=== PATIENT | female | born 1990 | race Hispanic/Latino ===

== ENCOUNTER 2022-04-10 01:01 | Emergency (ER) | payer OTHER ==
--- OUTSIDE RECORDS SUMMARY | 2022-04-10 01:05 | XMS REPORT | Continuity of Care Document ---
:1990 Author Organization [facility] t Address [address] [place] [address] Care Team Providers Name Role Phone ODALYS GUEVARA Attending Clinician Unavailable Odalys Guevara Attending Clinician ODALYS GUEVARA Admitting Clinician Unavailable Odalys Guevara Admitting Clinician Problems Condition Condition Condition Status Onset Resolution Last Treating Co mments Source Name Details Category Date Date Treatment Clinician Date , Diagnosis Active 2020-08-14 Memoria 04/13 , 06/23 , 06-12 08:15:00 l , 39 WEEKS 04/13 , 06/23 00:00: He ann , 39 WEEKS 00 Active 06/12/2020 [facility] 04/13 , 06/23 04/13 , Diagnosis Active 2020-06-16 Memoria , 39 WEEKS 06/23 , 39 06-12 13:54:00 l WEEKS 00:00: Cornelius Active 06/12/2020 [facility] CHILDBIRTH CHILDBIRT Diagnosis Active 2017-032018-04-16 Memoria H Active 04-25 15:12:00 l 02/22/2018 00:00: Edilberto huizar 00 [place] INDUCTION Diagnosis Active 2017-032018-04-18 Memoria INDUCTION - 10:47:00 l Active 00:00: [place] 02/22/2018 [facility] Anxiety Anxiety Problem Active 2020-06-20 Me anabel (finding) (finding) 03-13 21:55:06 l Active 00:00: [place] 03/13/2000 00 Problem 06/20/2020 [facility] 39 weeks 39 weeks Problem 2018-11-07 Memoria gestation gestation 15:58:01 l of of [place] 11/07/2018 [facility] Single Single Problem 2018-11-07 Mem oria live live 15:58:01 l 11/07/2018 Edilberto huizar [facility] Encounter Encounter Problem 2020-06-20 Memoria for for 21:55:06 l full-term full-term Herm pebbles uncomplica uncomplica josette josette delivery delivery 06/20/2020 [facility] ENCOUNTER ENCOUNTER Diagnosis Active 2020-08-14 Memoria FOR FOR 08:15:00 l Edilberto n DELIVERY DELIVERY WITHOUT WITHOUT Active [facility] ENCOUNTER Diagnosis Active 2020-06-17 Memoria FOR ENCOUNTER 10:58:00 l FULL-TERM FOR Cornelius UNCOMPLICA FULL-TERM JOSETTE DE UNCOMPLICA JOSETTE DE Active [facility] FAILED FAILED Diagnosis Active 2018-04-18 Me moria INDUCTION INDUCTION 10:47:00 l OF LABOR, OF LABOR, Herm pebbles UNSPECIFIE UNSPECIFIE D D Active [facility] Failed Failed Problem 2018-11-07 Roberto [facility] medical 15:58:01 l induction induction Herm pebbles of labor of labor 11/07/2018 [facility] Anxiety Anxiety Problem 2018-11-07 Me moria disorder, disorder, 15:58:01 l unspecifie unspecifie He rmann d d 11/07/2018 [facility] Other Other Problem 2018-11-07 Memor ia mental mental 15:58:01 l disorders disorders Herm pebbles complicati complicati ng ng childbirth childbirth 11/07/2018 [facility] Localized Localized Problem 2018-11-07 Memoria adiposity adiposity 15:58:01 l 11/07/2018 Edilberto huizar [facility] Patient Patient Problem Resolve 2020-06-20 2020-06-20 Memoria currently currently d 2- 21:55:06 21:55:06 l 00:00: Edilberto huizar (finding) (finding) 00 Resolved 04/16/2018 Problem 06/20/2020 [facility] History of Past Illness Condition Condition Condition Status Onset Resolution Last Treating Co mments Source Name Details Category Date Date Treatment Clinician Date Maternal Maternal Problem 2018-2018-11-07 2018-11-07 [facility]iele [facility] for care for 15:58:01 15:58:01 l disproport disproport 04:21: He rmann ion due to ion due to 18 unusually unusually large large fetus, not fetus, not applicable applicable or or unspecifie unspecifie d d 05/05/2018 9 [facility] Allergies, Adverse Reactions, Alerts This patient has no known allergies or adverse reactions. Social History Social Habit Start Date Stop Date Quantity Comments Source Social History 2018-04-17 2018-04-17 [facility] 00:23:02 00:23:02 Medications Ordered Filled Start Stop Current Ordering Indication Dosage Frequency Signature Comments Components Source Medication Medication Date Date Medication? Clinician (SIG) Name Name Cephalexin Yes 500 mg = 1 M emoria 500 MG Oral 08 cap, PO, l Capsule 17:20: BID, X 7 Edilberto n [Keflex] 00 day, # 14 cap, 0 Refill(s) Ibuprofen No Notes: Memori a - (Same as: l 17:00: Motrin) Cornelius "Do Not Crush" Take with food. Acetaminoph No Notes: Do M emoria en -07 not exceed l 16:43: 4 gm/day. [place] 00 (Same as: Tylenol) Acetaminoph No Notes: Roberto ellie en 325 MG / 06-17 (Same as: l Hydrocodone 16:43: [place] Charline nn Bitartrate 00 325/5) Do 5 MG Oral not exceed Tablet 4gm/day of acetaminop hen. Acetaminoph No Notes: Do M emoria en 325 MG / 07 not exceed l Hydrocodone 16:43: 4gm/day of [place]el[place] Bitartrate 00 acetaminop 10 MG Oral hen. (Same Tablet as: [place] 325/10) Ondansetron No Notes: Roberto ellie -07 (Same as: l 16:43: Zofran) [place] 00 MEDICATION WASTE Product Size: 4 mg Product Wasted: ___ mg No 1 tab, Memoria Multivitami 07 Route: PO, l ns oral 14:00: Drug Form: Herm pebbles tablet 00 TAB, Dosing Weight 127.273, kg, Daily, Start date: 06/17/20 9:00:00 CDT, Duration: 30 day, Stop date: 07/16/20 9:00:00 CDT, 0 Saline No Notes: Memoria Flush 0.9% - (Same as: l 02:00: BD Posiflush) Ketorolac No 4 days Memor ia 4-06 l 17:00: MEDICATION WASTE Product Size: 30 mg Product Wasted: ___ mg M-M-R II No Notes: Memoria 4-06 (Same as: l 16:00: M-M-R II) (measles-m umps-rubel la virus vaccine 0.5 ml INJ VL) WASTE: F/P - Red; E -Red GIVE PRIOR TO DISCHARGE Calcium No 1,000 mL, Memor ia Chloride -06 1,000 l 0.0014 16:00: ml/hr, MEQ/ML / 00 Infuse Potassium Over: 1 Chloride hr, Route: 0.004 IV, 1,000, MEQ/ML / Drug form: Sodium INJ, Chloride ONCALL, 0.103 Dosing MEQ/ML / Weight Sodium 127.273 Lactate kg, Start 0.028 date: MEQ/ML 06/16/20 Injectable 11:00:00 Solution CDT, Duration: 1 doses or times, For OB hemorrhage per physician direction, 0 Oxytocin No Notes: Memoria 4-06 (Same as: l 16:00: Pitocin) Hazardous Drug Group 3:Reproduc tive risk Hazardous Drug -- Refer to safe handling procedure PPE Matrix Misoprostol No Notes: Roberto ellie 4-06 (Same l 16:00: as:Cytotec ) Hazardous Drug Group 3:Reproduc tive risk Hazardous Drug -- Refer to safe handling procedure PPE Matrix Take with food Methylergon No Notes: Roberto ellie ovine 4-06 (Same l 16:00: as:Metherg ine) Hazardous Drug Group 3:Reproduc tive risk Hazardous Drug -- Refer to safe handling procedure PPE Matrix Atropine No Notes: Memoria Sulfate 4-06 (Same As: l 0.025 MG / 16:00: Lomotil) Her álvarez Diphenoxyla 00 MAX Adult te dose = 8 Hydrochlori tabs/day de 2.5 MG Oral Tablet Carboprost No Notes: Memor ia 4-06 (Same As: l 16:00: Hemabate) Tranexamic No Notes: Memor ia Acid -06 (Same As: l 16:00: Cyklokapro n) Lactated No 1,000 mL, Roberto ellie Ringers IV 06-16 Rate: 125 l 1,000 mL 15:55: ml/hr, Infuse over: 8 hr, Route: IV, Dosing Weight 127.273 kg, Total Volume: 1,000, see special instructio n for rate while completing infusion from recovery for the 20 Units of Oxytocin., Start date: 06/16/20 10:55:00 CDT, Duration.. . Bisacodyl No Notes: Memori a - (Same As: l 15:55: Dulcolax, Correctol) (Do Not Crush) "Do Not Crush" Docusate No Notes: Memoria 06-16 (Same as: l 15:55: Colace) (Do Not Crush) lanolin No 1 appl, Memoria topical 06-16 Route: l cream 15:55: TOP, PRN, Drug form: OINT, PRN Other -See Comment, Start date: 06/16/20 10:55:00 CDT, Duration: 30 day, Stop date: 07/16/20 10:54:00 CDT, 0 Simethicone No Notes: Roberto ellie -06 (Same as: l 15:55: Mylicon) Oxytocin No Notes: Memoria 06 Hazardous l 15:55: Drug Group 3:Reproduc tive risk Hazardous Drug -- Refer to safe handling procedure PPE Matrix Saline No Notes: Memoria Flush 0.9% 06-16 (Same as: l 15:55: BD Posiflush) Naloxone No Notes: Memoria 4-06 Same as l 15:00: Narcan Oxycodone No Notes: Memori a Hydrochlori -06 (Same as: l de 5 MG 14:55: Roxicodone Herm pebbles Oral Tablet ) Hydromorpho No Notes: Roberto ellie ne -06 Same as: l 14:55: Dilaudid Ondansetron No Notes: Roberto ellie -06 (Same as: l 14:55: Zofran) MEDICATION WASTE Product Size: 4 mg Product Wasted: ___ mg Nalbuphine No Notes: Memor ia -06 (Same As: l 14:55: Nubain) Meperidine Yes Notes: Memor ia -06 (Same as: l 14:55: Demerol) "Use Precaution in Elderly, Seizure disorders, and Renal impairment " Diphenhydra No Notes: Roberto ellie mine -06 (Same as: l 14:36: Benadryl) oxytocin No Route: IV, Mem oria (ANES) 30 06-16 Drug form: l unit 13:47: SOLN, [place] 00 Start date: 06/16/20 8:47:00 CDT, Stop date: 06/16/20 9:47:00 CDT bupivacaine No Route: Roberto ellie (ANES) 06-16 INTRATHECA l 13:46: L, Drug Form: INJ, ONCE, Stop date: 06/16/20 8:46:00 CDT phenylephri No Route: IV, Memoria ne (ANES) 06-16 Drug form: l 13:46: INJ, ONCE, Stop date: 06/16/20 8:46:00 CDT fentaNYL No Route: Memoria (ANES) 4- INTRATHECA l 13:46: L, Drug form: INJ, ONCE, Stop date: 06/16/20 8:46:00 CDT morphine No Route: Memoria Sulfate - INTRATHECA l (ANES) 13:46: L, Drug form: INJ, ONCE, Stop date: 06/16/20 8:46:00 CDT ondansetron No Route: IV, Memoria (ANES) 06-16 Drug form: l 13:36: INJ, ONCE, Stop date: 06/16/20 8:36:00 CDT ceFAZolin No Route: IV, Me moria (ANES) 1000 06-16 Drug form: l mg 13:01: INJ, Start date: 06/16/20 8:01:00 CDT, Stop date: 06/16/20 9:01:00 CDT Lactated No Route: IV, Mem oria Ringers 06-16 Total l Injection 13:01: Volume: Charline nn IV (ANES) 00 1,000, 1000 mL Start date: 06/16/20 8:01:00 CDT, Stop date: 06/16/20 9:01:00 CDT Vitamin D3 Yes 0 Memoria 06-16 Refill(s) l 11:14: Calcium No 1,000 mL, Memor ia Chloride 06-16 1,000 l 0.0014 11:00: ml/hr, MEQ/ML / 00 Infuse Potassium Over: 1 Chloride hr, Route: 0.004 IV, 1,000, MEQ/ML / Drug form: Sodium INJ, Chloride ONCALL, 0.103 Dosing MEQ/ML / Weight Sodium 127.273 Lactate kg, Start 0.028 date: MEQ/ML 06/16/20 Injectable 6:00:00 Solution CDT, Duration: 1 doses or times, For OB hemorrhage per physician direction, 0 Oxytocin No Notes: Memoria 06-16 (Same as: l 11:00: Pitocin) Hazardous Drug Group 3:Reproduc tive risk Hazardous Drug -- Refer to safe handling procedure PPE Matrix Misoprostol No Notes: Roberto ellie 06-16 (Same l 11:00: as:Cytotec ) Hazardous Drug Group 3:Reproduc tive risk Hazardous Drug -- Refer to safe handling procedure PPE Matrix Take with food Methylergon No Notes: Roberto ellie ovine 06-16 (Same l 11:00: as:Metherg 00 ine) Hazardous Drug Group 3:Reproduc tive risk Hazardous Drug -- Refer to safe handling procedure PPE Matrix Atropine No Notes: Memoria Sulfate - (Same As: l 0.025 MG / 11:00: Lomotil) Her álvarez Diphenoxyla 00 MAX Adult te dose = 8 Hydrochlori tabs/day de 2.5 MG Oral Tablet Carboprost No Notes: Memor ia - (Same As: l 11:00: Hemabate) Tranexamic No Notes: Memor ia Acid 06-16 (Same As: l 11:00: Cyklokapro n) Cefazolin No Notes: Memori a 06-16 (Same As: l 11:00: Ancef, Kefzol) MEDICATION WASTE Product Size: 1000 mg Product Wasted: ___ mg Calcium No 1,000 mL, Memor ia Chloride 06-16 1,000 l 0.0014 10:51: ml/hr, [place] MEQ/ML / 00 Infuse Potassium Over: 1 Chloride hr, Route: 0.004 IV, 1,000, MEQ/ML / Drug form: Sodium INJ, ONCE, Chloride Dosing 0.103 Weight MEQ/ML / 127.273 Sodium kg, Start Lactate date: 0.028 06/16/20 MEQ/ML 5:51:00 Injectable CDT, Stop Solution date: 06/16/20 5:51:00 CDT, 0 oxytocin 30 No Notes: Roberto ellie units in NS 06-16 Hazardous l 500 mL 10:51: Drug Group Charline nn (Bolus) IV 00 3:Reproduc 10.02 unit tive risk Hazardous Drug -- Refer to safe handling procedure PPE Matrix oxytocin 30 No Notes: Roberto ellie units in NS 4-06 Hazardous l 500 mL IV 10:51: Drug Group He rmann 19.98 unit 00 3:Reproduc tive risk Hazardous Drug -- Refer to safe handling procedure PPE Matrix Morphine No Notes: Memoria -06 (Same l 10:51: as:MORPhin e Sulfate) Citric Acid No Notes: Roberto ellie / sodium 4-06 (Same As: l citrate 10:51: Bicitra) Edilberto n 00 Terbutaline No Notes: Roberto ellie 4-06 DO NOT l 10:51: USE IN [place] 00 COOK APPRENTICE PASTRY AREA (Same As: [place]) Famotidine No Notes: Memor ia -06 (Same as: l 10:51: Pepcid) Can be dilute in 5-10cc NS IVP: Slow IV push over at least 2 minutes. Ondansetron No Notes: Roberto ellie 4-06 (Same as: l 10:51: Zofran) MEDICATION WASTE Product Size: 4 mg Product Wasted: ___ mg Metoclopram No Notes: Roberto ellie ryan -06 (Same as: l 10:51: Reglan) [place] 00 Oxytocin No Notes: Memoria 4-06 Hazardous l 10:51: Drug Group 3:Reproduc tive risk Hazardous Drug -- Refer to safe handling procedure PPE Matrix Lorazepam 1 No 1 mg = 1 Me moria MG Oral 2-08 tab, PO, l Tablet 22:53: BID, PRN 00 Anxiety, # 30 tab, 1 Refill(s) ibuprofen No 600 mg = 1 Me moria 600 mg oral 2-08 tab, PO, l tablet 22:50: Q6Hnow, # Edilberto n 00 30 btl, 1 Refill(s) cephalexin No 500 mg = 1 M emoria 500 mg oral 2-08 cap, PO, l capsule 22:50: [id number], # Herm pebbles 00 14 cap, 0 Refill(s) Acetaminoph No 1 tab, PO, Memoria en 300 MG / 2-08 Q6H, PRN l Codeine 22:50: Pain Score Herm pebbles Phosphate 00 4-6, # 30 30 MG Oral tab, 2 Tablet Refill(s) [Tylenol with Codeine #3] Keflex No Notes: Memoria 2-08 Take on l 21:00: empty [place] 00 stomach. (Same As: Keflex) Acetaminoph No Notes: Do M emoria en 300 MG / 2-08 not exceed l Codeine 20:26: 4gm/day of Herm pebbles Phosphate 00 acetaminop 30 MG Oral hen. (Same Tablet as: [Tylenol Tylenol with with Codeine #3] Codeine # 3) Ativan No Notes: Memoria 2-08 (Same as: l 17:00: Ativan) [place] 00 Lovenox No Notes: Memoria 2-06 (Same as: l 20:00: Lovenox) Cornelius No 1 tab, Memoria Multivitami -06 Route: PO, l ns oral 15:00: Drug Form: Herm pebbles tablet 00 TAB, Dosing Weight 128.182, kg, Daily, Start date: 04/18/18 9:00:00 IRON PILER, Duration: 30 day, Stop date: 05/17/18 9:00:00 IRON PILER Ketorolac No 4 days Memor ia 04-18 l 01:10: MEDICATION WASTE Product Size: 30 mg Product Wasted: ___ mg ferrous No Notes: Memoria sulfate 2-05 Give with l 23:00: food. "Do Not Crush" Ibuprofen No Notes: Memori a 2-05 (Same as: l 22:00: Motrin) "Do Not Crush" Take with food. zolpidem No Notes: Memoria 2-05 (Same As: l 21:08: Ambien) Bisacodyl No Notes: Memori a 2-05 (Same As: l 21:08: Dulcolax, [place] 00 Bisco-Lax) Docusate No Notes: Memoria 2-05 (Same as: l 21:08: Colace) (Do Not Crush) Acetaminoph No Notes: Roberto ellie en 325 MG / 2-05 (Same as: l Hydrocodone 21:08: [place] Charline nn Bitartrate 00 325/5) Do 5 MG Oral not exceed Tablet 4gm/day of acetaminop hen. Acetaminoph No Notes: Do M emoria en 325 MG / 2-05 not exceed l Hydrocodone 21:08: 4gm/day of [place] Bitartrate 00 acetaminop 10 MG Oral hen. (Same Tablet as: [place] 325/10) Lactated No 1,000 mL, Roberto ellie Ringers IV 2-05 Rate: 100 l 1,000 mL 21:08: ml/hr, [place] 00 Infuse over: 10 hr, Route: IV, Dosing Weight 128.182 kg, Total Volume: 1,000, Start date: 04/17/18 15:08:00 IRON PILER, Duration: 30 day, Stop date: 05/17/18 15:07:00 IRON PILER, 2.49, m2 Oxytocin 2019 No 30 unit, Memor ia 2-05 500 mL, l 21:08: Rate: 42 Cornelius 00 ml/hr, Infuse over: 11.9 hr, Dosing Weight 128.182, kg, Route: IV, Total Volume: 500 mL, Start date: 04/17/18 15:08:00 IRON PILER, Duration: 2 day, Stop date: 04/19/18 15:07:00 IRON PILER, Replace Every: 11.9 hr Simethicone No Notes: Roberto ellie 2-05 (Same as: l 21:08: Mylicon) Acetaminoph No Notes: Do M emoria en 2-05 not exceed l 21:08: 4 gm/day. (Same as: Tylenol) Benzocaine No Notes: Memor ia / Menthol 2-05 Same as: l 21:08: Cepacol lanolin No 1 appl, Memoria topical 05 Route: l cream 21:08: TOP, PRN, Drug form: OINT, PRN Other -See Comment, Start date: 04/17/18 15:08:00 IRON PILER, Duration: 30 day, Stop date: 05/17/18 15:07:00 IRON PILER Naloxone 2018-0 No Notes: Memoria 2-05 Same as l 19:47: Narcan phenylephri No Route: IV, Memoria ne (ANES) 2-05 Drug form: l 19:23: INJ, ONCE, Stop date: 04/17/18 13:23:00 IRON PILER morphine 2018-0 No Route: Memoria Sulfate 2-05 INTRATHECA l (ANES) 19:17: L, Drug form: INJ, ONCE, Stop date: 04/17/18 13:17:00 IRON PILER bupivacaine No Route: Roberto ellie (ANES) 2-05 INTRATHECA l 19:12: L, Drug Form: INJ, ONCE, Stop date: 04/17/18 13:12:00 IRON PILER oxytocin 2019-0 No Route: IV, Mem oria (ANES) 30 2-05 Drug form: l unit 19:11: SOLN, Cornelius Start date: 04/17/18 13:11:00 IRON PILER, Stop date: 04/17/18 14:11:00 IRON PILER ceFAZolin No Route: IV, Me moria (ANES) 1000 2-05 Drug form: l mg 18:30: INJ, Start date: 04/17/18 12:30:00 IRON PILER, Stop date: 04/17/18 13:30:00 IRON PILER Lactated No Route: IV, Mem oria Ringers 2-05 Total l Injection 18:22: Volume: Charline nn IV (ANES) 00 1,000, 1000 mL Start date: 04/17/18 12:22:00 IRON PILER, Stop date: 04/17/18 13:22:00 IRON PILER Cefazolin No Notes: Memori a 2-05 (Same As: l 17:00: Ancef, Kefzol) MEDICATION WASTE Product Size: 1000 mg Product Wasted: ___ mg Metoclopram 2018- No Notes: Roberto ellie ryan 2-05 (Same as: l 16:17: Reglan) Ondansetron 2018- No Notes: Roberto ellie 2-05 (Same as: l 15:16: Zofran) MEDICATION WASTE Product Size: 4 mg Product Wasted: ___ mg Morphine 2019- No 2 mg, 1 Memori a 2-05 mL, Route: l 15:16: IVP, Drug form: SOLN, Q2H, Dosing Weight 128.182, kg, PRN Pain Score 7-10, Start date: 04/17/18 9:16:00 IRON PILER, Duration: 30 day, Stop date: 05/17/18 9:15:00 IRON PILER Cefazolin No Notes: Memori a 2-05 (Same As: l 15:16: Ancef, [place] Kefzol) MEDICATION WASTE Product Size: 1000 mg Product Wasted: ___ mg Expecta DHA 2018- Yes 0 Memori a 2-05 Refill(s) l 14:03: [place] 00 1 No 1 tab, PO, M emoria Plus 1 oral 2-05 Daily, # l tablet 14:03: 30 tab, 0 Edilberto n 00 Refill(s) Oxytocin No 30 unit, Memor ia 2-05 500 mL, l 11:42: Rate: Titrate, Dosing Weight 282, lb, Route: IV, Total Volume: 500 mL, Start date: 04/17/18 5:42:00 IRON PILER, Duration: 2 day, Stop date: 04/19/18 5:41:00 IRON PILER, Replace Every: 24 hr Misoprostol No Notes: Roberto ellie 2-05 (Same l 02:00: as:Cytotec [place] 00 ) Take with food 25 microgram = 1/4 tab of 100 microgram. Carboprost No Notes: Memor ia 2-05 (Same As: l 00:00: Hemabate) Citric Acid No Notes: Roberto ellie / sodium 2-05 (Same As: l citrate 00:00: Bicitra) Edilberto n Methylergon No Notes: Roberto ellie ovine 2-05 (Same l 00:00: as:Metherg [place] ine) Misoprostol No Notes: Roberto ellie 2-05 (Same l 00:00: as:Cytotec [place] 00 ) Take with food Famotidine No Notes: Memor ia 2-05 (Same as: l 00:00: Pepcid) Can be dilute in 5-10cc NS IVP: Slow IV push over at least 2 minutes. Terbutaline No Notes: Roberto ellie 2-04 DO NOT l 23:42: USE IN [place] COOK APPRENTICE PASTRY AREA (Same As: Brethine) Butorphanol No Notes: Roberto ellie 2-04 (Same As: l 23:42: Stadol) Meperidine No Notes: Memor ia 2-04 (Same as: l 23:42: Demerol) "Use Precaution in Elderly, Seizure disorders, and Renal impairment " Promethazin No Notes: Do M emoria e 2-04 not give l 23:42: IV push. [place] 00 (Same as: Phenergan) Acetaminoph No Notes: Roberto ellie en 325 MG / 2-04 (Same as: l Hydrocodone 23:42: [place] Charline nn Bitartrate 00 325/5) Do 5 MG Oral not exceed Tablet 4gm/day of acetaminop hen. Ondansetron No Notes: Roberto ellie 2-04 (Same as: l 23:42: Zofran) MEDICATION WASTE Product Size: 4 mg Product Wasted: ___ mg Lidocaine No Notes: Memori a Hydrochlori 2-04 Preservati l de 10 MG/ML 23:42: ve free. He rmann Injectable 00 (Same as: Solution Xylocaine MPF) Oxytocin No 30 unit, Memor ia 2-04 500 mL, l 23:42: Rate: 42 [place] 00 ml/hr, Infuse over: 11.9 hr, Route: IV, Total Volume: 500 mL, Start date: 04/16/18 17:42:00 IRON PILER, Duration: 2 day, Stop date: 04/18/18 17:41:00 IRON PILER, Replace Every: 11.9 hr Calcium No 1,000 mL, Memor ia Chloride 2-04 1,000 l 0.0014 23:42: ml/hr, [place] MEQ/ML / 00 Infuse Potassium Over: 1 Chloride hr, Route: 0.004 IV, 1,000, MEQ/ML / Drug form: Sodium INJ, ONCE, Chloride kg, Start 0.103 date: MEQ/ML / 04/16/18 Sodium 17:42:00 Lactate IRON PILER, Stop 0.028 date: MEQ/ML 04/16/18 Injectable 17:42:00 Solution IRON PILER, Bolus for regional anesthesia per unit routine Lactated No 1,000 mL, Roberto ellie Ringers IV 04-16 Rate: 125 l 1,000 mL 23:42: ml/hr, [place] 00 Infuse over: 8 hr, Route: IV, Total Volume: 1,000, Start date: 04/16/18 17:42:00 IRON PILER, Duration: 30 day, Stop date: 05/16/18 17:41:00 IRON PILER Ibuprofen No Notes: Memori a 2-04 (Same as: l 23:42: Motrin) [place] "Do Not Crush" Take with food. Ativan No Notes: Memoria 2-04 (Same as: l 23:40: Ativan) Cornel[place] Immunizations Ordered Immunization Filled Immunization Date Status Commen ts Source Name Name diphtheria/pertussis 2020-06-17 Completed Roberto rial , acel/tetanus adult 22:47:00 Herm pebbles diphtheria/pertussis 2018-04-19 Completed Roberto rial , acel/tetanus adult 12:29:00 Herm pebbles Vital Signs Vital Name Observation Time Observation Value Comments Source Temperature Oral (F) 2020-06-18 12:30:00 98.2 F [facility] [place] Heart Rate 2020-06-18 12:30:00 [facility] [place] Respitory Rate 2020-06-18 12:30:00 Memori al [place] Systolic (mm Hg) 2020-06-18 12:30:00 Roberto rial [place] Diastolic (mm Hg) 2020-06-18 12:30:00 Mem orial [place] Temperature Oral (F) 2020-06-18 05:00:00 98.0 F [facility] [place] Heart Rate 2020-06-18 05:00:00 [facility] [place] Respitory Rate 2020-06-18 05:00:00 Memori al [place] Systolic (mm Hg) 2020-06-18 05:00:00 Roberto rial [place] Diastolic (mm Hg) 2020-06-18 05:00:00 Mem orial [place] Temperature Oral (F) 2020-06-17 21:21:00 98.1 F [facility] [place] Heart Rate 2020-06-17 21:21:00 [facility] [place] Respitory Rate 2020-06-17 21:21:00 Memori al [place] Systolic (mm Hg) 2020-06-17 21:21:00 Roberto rial [place] Diastolic (mm Hg) 2020-06-17 21:21:00 Mem [facility] [place] Height 2020-06-16 10:47:00 167.64 cm [facility] [place] Weight 2020-06-16 10:47:00 [facility] [place] BMI Calculated 2020-06-16 10:47:00 [facility] [place] Height 2020-06-13 18:37:00 167.64 cm [facility] [place] Weight 2020-06-13 18:37:00 [facility] [place] BMI Calculated 2020-06-13 18:37:00 [facility] [place] Temperature Oral (F) 2020-06-13 18:37:00 98.4 F [facility] [place] Heart Rate 2020-06-13 18:37:00 [facility] [place] Respitory Rate 2020-06-13 18:37:00 Mem[facility] al [place] Systolic (mm Hg) 2020-06-13 18:37:00 Roberto rial [place] Diastolic (mm Hg) 2020-06-13 18:37:00 Mem orial [place] Respitory Rate 2018-04-20 21:46:00 Memori al [place] Systolic (mm Hg) 2018-04-20 21:46:00 Roberto rial [place] Diastolic (mm Hg) 2018-04-20 21:46:00 Mem orial [place] Heart Rate 2018-04-20 21:46:00 [facility] [place] Temperature Oral (F) 2018-04-20 21:46:00 98.8 F [facility] [place] Temperature Oral (F) 2018-04-20 13:39:00 98.6 F [facility] [place] Systolic (mm Hg) 2018-04-20 13:39:00 Roberto rial [place] Diastolic (mm Hg) 2018-04-20 13:39:00 Mem orial [place] Heart Rate 2018-04-20 13:39:00 [facility] [place] Respitory Rate 2018-04-20 13:39:00 Memori al [place] Diastolic (mm Hg) 2018-04-20 06:00:00 Mem orial [place] Systolic (mm Hg) 2018-04-20 06:00:00 Roberto rial [place] Respitory Rate 2018-04-20 06:00:00 Memori al [place] Heart Rate 2018-04-20 06:00:00 [facility] Cornelius Temperature Oral (F) 2018-04-20 06:00:00 98.5 F [facility] Cornelius BMI Calculated 2018-04-16 23:42:00 Matty Rodríguez Weight 2018-04-16 23:42:00 Emily Shields Height 2018-04-16 23:42:00 167.64 cm Emily [place] Procedures Procedure Date / Time Performed Performing Clinician Sourc e section 2018-04-17 06:00:00 [facility] Kimani rmpebbles Extraction of wisdom [facility] Kimani rmpebbles tooth Encounters Start End Encounter Admission Attending Care Care Encounter Source Date/Time Date/Time Type Type Clinicians Facility Department ID 2020-06-16 2020-06-18 Inpatient Nikkio [facility] [id number] Memoria 10:38:00 19:00:00 smita Shields 00 l [facility] 2020-06-16 2020-06-18 [place] [facility] [id number] 05:38:00 14:00:00 ODALYS rucker [facility] l 2020-06-16 2020-06-18 [place] [id number] 05:38:00 14:00:00 Odalys R 00 2020-06-16 2020-06-16 [place] [facility] [id number] 07:30:00 07:30:00 Odalys R 00 2018-04-16 2018-04-20 Inpatient Nikkio [facility] [id number] Memoria 23:15:00 23:15:00 smita Shields 47 l [facility] 2018-04-16 2018-04-20 [place] [id number] 17:15:00 17:15:00 Odalys R 47 2018-04-16 2018-04-20 [facility], [place] [id number] 17:15:00 17:15:00 Odalys R 47 Results Test Description Test Time Test Comments Results Result Comments Source HEMATOLOGY 2020-06-17 03:55:00 Test Item Value Reference Range Interpretation Comme nts Hgb (test code = Hgb) 10.6 12.0-16.0 [facility] 03:55:00 Test Item Value Reference Range Interpretation Comments Hct (test code = Hct) 32.9 36.0-48.0 [facility] [id number] 18:25:00 Test Item Value Reference Range Interpretation Comments ABO/Rh (test code = ABO/Rh) A POS [facility] [id number] 18:25:00 Test Item Value Reference Range Interpretation Comments Antibody Scrn (test Negative (06/13/20 1:25 code = Antibody Scrn) PM) [facility]2021-04-03 18:25:00 Test Item Value Reference Range Interpretation Comments Rhig Reqd (test code = See Note 1(06/13/20 1:25 Rhig Reqd) PM) [facility]WNUDIGERCF9949-03-12 18:25:00 Test Item Value Reference Range Interpretation Comments Segs (test code = Segs) 69.6 45.0-75.0 [facility] HospitalBvwzvvtYNYHVFCUEH5458-58-96 18:25:00 Test Item Value Reference Range Interpretation Comments Lymphocytes (test code = Lymphocytes) 22.3 20.0-40.0 [facility] HospitalRikzvbqOAGYHCSGBY4263-53-17 18:25:00 Test Item Value Reference Range Interpretation Comments Monocytes (test code = Monocytes) 6.9 2.0-12.0 [facility] HospitalHjnfautQFHUUEPCKL3090-12-86 18:25:00 Test Item Value Reference Range Interpretation Comments Eosinophils (test code = 0.7 See_Comment [A utomated message] The Eosinophils) system which ge nerated this result tra nsmitted reference range : <=4.0. The reference r jennifer was not used to int erpret this result as normal/abnormal . [facility] HospitalNopfmsrNGAUDVABYI8659-64-28 18:25:00 Test Item Value Reference Range Interpretation Comments Basophils (test code = 0.5 See_Comment [Aut omated message] The Basophils) system which ge nerated this result tra nsmitted reference range : <=1.0. The reference r jennifer was not used to int erpret this result as normal/abnormal . [facility] HospitalIyqbfnsYCCQXZVGNO5705-25-65 18:25:00 Test Item Value Reference Range Interpretation Comments Neutrophils # (test code = Neutrophils 7.4 1.5-8.1 #) [facility] HospitalHwqsxakLYPWNPZZTH7562-99-96 18:25:00 Test Item Value Reference Range Interpretation Comments Lymphocytes # (test code = Lymphocytes 2.4 1.0-5.5 #) [place] [address]-04-03 18:25:00 Test Item Value Reference Range Interpretation Comments Monocytes # (test code 0.7 See_Comment [Aut omated message] The = Monocytes #) system which generated this result tra nsmitted reference range : <=0.8. The reference r jennifer was not used to int erpret this result as normal/abnormal . [place] 507741-04-03 18:25:00 Test Item Value Reference Range Interpretation Comments Eosinophils # (test code 0.1 See_Comment [A utomated message] The = Eosinophils #) system whic h generated this result tra nsmitted reference range : <=0.5. The reference r jennifer was not used to int erpret this result as normal/abnormal . [place] [address]-04-03 18:25:00 Test Item Value Reference Range Interpretation Comments Basophils # (test code 0.1 See_Comment [Aut omated message] The = Basophils #) system which generated this result tra nsmitted reference range : <=0.2. The reference r jennifer was not used to int erpret this result as normal/abnormal . [place] [address]-04-03 18:25:00 Test Item Value Reference Range Interpretation Comments WBC (test code = WBC) 10.7 3.7-10.4 [place] [address]-04-03 18:25:00 Test Item Value Reference Range Interpretation Comments RBC (test code = RBC) 4.67 4.20-5.40 [place] [address]-04-03 18:25:00 Test Item Value Reference Range Interpretation Comments Hgb (test code = Hgb) 12.3 12.0-16.0 [place] [address]-04-03 18:25:00 Test Item Value Reference Range Interpretation Comments Hct (test code = Hct) 37.6 36.0-48.0 [place] [address]-04-03 18:25:00 Test Item Value Reference Range Interpretation Comments MCV (test code = MCV) 80.4 80.0-98.0 [place] [address]-04-03 18:25:00 Test Item Value Reference Range Interpretation Comments MCH (test code = MCH) 26.4 pg 27.0-31.0 [facility] HospitalAwjildcFTDYRWWCQW1220-97-51 18:25:00 Test Item Value Reference Range Interpretation Comments MCHC (test code = MCHC) 32.8 32.0-36.0 [facility] HospitalWdxccfpLYXQPFLXSV3992-73-07 18:25:00 Test Item Value Reference Range Interpretation Comments RDW (test code = RDW) 16.2 11.5-14.5 [facility] HospitalJkyfoqqJLVMIWUIZX6435-50-15 18:25:00 Test Item Value Reference Range Interpretation Comments Platelet (test code = Platelet) 301 133-450 [facility] HospitalNjzpokkAAXKBHATMG5598-35-83 18:25:00 Test Item Value Reference Range Interpretation Comments MPV (test code = MPV) 8.0 7.4-10.4 [facility]izjycvALLNQKQLYP9754-79-07 18:25:00 Test Item Value Reference Range Interpretation Comments HIV. (test code = Negative (06/13/20 1:25 HIV.) PM) [facility] HospitalPhkmaluVHGLXBTWGY1291-43-69 18:25:00 Test Item Value Reference Range Interpretation Comments Rubella IgG (test code = Rubella IgG) 64.6 [facility] HospitalNqdxtqoCDZYZPJAQF6241-40-67 18:25:00 Test Item Value Reference Range Interpretation Comments Treponemal Ab (test code Non-Reactive = Treponemal Ab) *NA*(06/13/20 1:25 PM) [facility] HospitalTabkxajJWODRZAJNT2300-07-81 18:25:00 Test Item Value Reference Range Interpretation Comments Coronavirus (COVID-19) Not Detected BOO (test code = *NA*(06/13/20 1:25 PM) Coronavirus (COVID-19) BOO) [facility] HospitalVtdkhgkPTPJVXIJAP6325-79-06 18:25:00 Test Item Value Reference Range Interpretation Comments Hep Bs Ag (test code = Hep Bs NON-REACTIVE Ag) [facility] HospitalWkvkigcSJPIGBOWVK6202-89-87 13:55:00 Test Item Value Reference Range Interpretation Comments Hgb (test code = Hgb) 9.9 12.0-16.0 [facility] HospitalXwnwgloDLQPYXODUY9040-58-65 13:55:00 Test Item Value Reference Range Interpretation Comments Hct (test code = Hct) 29.5 36.0-48.0 [facility] HospitalBzjwmmvVPZKGQQWUR8259-80-51 00:06:00 Test Item Value Reference Range Interpretation Comments Basophils (test code = 0.5 See_Comment [Aut omated message] The Basophils) system which ge nerated this result tra nsmitted reference range : <=1.0. The reference r jennifer was not used to int erpret this result as normal/abnormal . [facility] HospitalKkljtkjVCYGNNWJBH0291-20-57 00:06:00 Test Item Value Reference Range Interpretation Comments Segs (test code = Segs) 73.6 45.0-75.0 [facility] HospitalOntohuoVINACRSOBZ9059-21-59 00:06:00 Test Item Value Reference Range Interpretation Comments Monocytes (test code = Monocytes) 6.6 2.0-12.0 [facility] HospitalAfaebilXNXYZPHUZH6881-60-58 00:06:00 Test Item Value Reference Range Interpretation Comments Eosinophils (test code = 0.8 See_Comment [A utomated message] The Eosinophils) system which ge nerated this result tra nsmitted reference range : <=4.0. The reference r jennifer was not used to int erpret this result as normal/abnormal . [facility] HospitalQhzztbwHANDJSLZXV1715-79-89 00:06:00 Test Item Value Reference Range Interpretation Comments Basophils # (test code 0.1 See_Comment [Aut omated message] The = Basophils #) system which generated this result tra nsmitted reference range : <=0.2. The reference r jennifer was not used to int erpret this result as normal/abnormal . [facility] HospitalVjjlqhvGXYAFLKEPQ3613-69-72 00:06:00 Test Item Value Reference Range Interpretation Comments Monocytes # (test code 0.8 See_Comment [Aut omated message] The = Monocytes #) system which generated this result tra nsmitted reference range : <=0.8. The reference r jennifer was not used to int erpret this result as normal/abnormal . [facility] HospitalLwicaamHUGAHEEUFS8222-76-92 00:06:00 Test Item Value Reference Range Interpretation Comments Eosinophils # (test code 0.1 See_Comment [A utomated message] The = Eosinophils #) system wh h generated this result tra nsmitted reference range : <=0.5. The reference r jennifer was not used to int erpret this result as normal/abnormal . [facility] HospitalMlesrleXMUEHYAFCG5803-56-72 00:06:00 Test Item Value Reference Range Interpretation Comments Lymphocytes # (test code = Lymphocytes 2.1 1.0-5.5 #) [facility]ImkecbrFCQERJWUVL5886-21-23 00:06:00 Test Item Value Reference Range Interpretation Comments Neutrophils # (test code = Neutrophils 8.5 1.5-8.1 #) [facility] HospitalLmmmcaiERSPVCOKYY1583-48-89 00:06:00 Test Item Value Reference Range Interpretation Comments MPV (test code = MPV) 8.1 7.4-10.4 [facility] HospitalWutbcqiYLFUDNGDTW1667-51-73 00:06:00 Test Item Value Reference Range Interpretation Comments Platelet (test code = Platelet) 318 133-450 [facility] HospitalGsjrowzTZQYPDWQVV5195-32-69 00:06:00 Test Item Value Reference Range Interpretation Comments MCV (test code = MCV) 79.7 80.0-98.0 [facility] HospitalKqiracfYTDKMZYMKF4006-46-53 00:06:00 Test Item Value Reference Range Interpretation Comments MCH (test code = MCH) 26.4 pg 27.0-31.0 [facility] HospitalNzvlmurSOCOVLNGXI2214-65-62 00:06:00 Test Item Value Reference Range Interpretation Comments Hct (test code = Hct) 37.3 36.0-48.0 [facility] HospitalMqerhdyEYOIBRLIZR6804-44-80 00:06:00 Test Item Value Reference Range Interpretation Comments WBC (test code = WBC) 11.5 3.7-10.4 [facility] HospitalTpjzcapCLMUIRYZLI1094-74-22 00:06:00 Test Item Value Reference Range Interpretation Comments Hgb (test code = Hgb) 12.4 12.0-16.0 [facility] HospitalQyhezhnWASDBNHAVB1526-94-87 00:06:00 Test Item Value Reference Range Interpretation Comments RBC (test code = RBC) 4.68 4.20-5.40 [facility] HospitalHdlknsnZGUGZORWXT8353-74-99 00:06:00 Test Item Value Reference Range Interpretation Comments RDW (test code = RDW) 16.6 11.5-14.5 [facility] HospitalOoaybydCHGLGUCRKA9635-71-66 00:06:00 Test Item Value Reference Range Interpretation Comments MCHC (test code = MCHC) 33.2 32.0-36.0 [facility]PszvedfBBMAMGACAN9421-09-30 00:06:00 Test Item Value Reference Range Interpretation Comments Treponemal Ab (test code Non-Reactive = Treponemal Ab) *NA*(04/16/18 6:06 PM) [facility] CenterDvydvhuDYNLEQBAJL0465-42-89 00:06:00 Test Item Value Reference Range Interpretation Comments Hep Bs Ag (test code Negative *NA*(04/16/18 = Hep Bs Ag) 6:06 PM) [facility] CenterFgvrvpiIRZHGAOKML6671-96-43 00:06:00 Test Item Value Reference Range Interpretation Comments HIV. (test code = Negative *NA*(04/16/18 HIV.) 6:06 PM) [facility] [employer] [id number] 00:06:00 Test Item Value Reference Range Interpretation Comments Rhig Reqd (test code = See Note 1(04/16/18 6:06 Rhig Reqd) PM) [facility] [employer] [id number] 00:06:00 Test Item Value Reference Range Interpretation Comments ABO/Rh (test code = ABO/Rh) A POS [facility] [employer] RJGKBYS5219-20-92 00:06:00 Test Item Value Reference Range Interpretation Comments Antibody Scrn (test Negative (04/16/18 6:06 code = Antibody Scrn) PM) [facility] CenterBikuabmBKIWVMFTMA2413-18-00 00:06:00 Test Item Value Reference Range Interpretation Comments Lymphocytes (test code = Lymphocytes) 18.5 20.0-40.0 [facility]
[2022-04-10] MEDS ORDERED: NA CHLORIDE 0.9% 1,000 ML ONE ×2 (01:20→03:40)
[2022-04-10 01:33] LABS: Absolute Lymphocytes (CBC) 4.5 K/uL (0.7-4.9); Hematocrit 39.7 % (36.0-45.0); Lymphocytes % 43.4 % (15.3-44.8); MCV 80.8 fL (80-100); MPV 7.1 fL (7.6-11.3); RBC Red Blood Cell Count 4.91 M/uL (3.86-4.86)
[2022-04-10 02:00] LABS: Potassium 3.4 mmol/L (3.5-5.1)
[2022-04-10] MEDS ORDERED: LORazepam 2 MG/ML VIAL ONE (03:21)
--- NOTE | 2022-04-10 04:06 | ER ---
Nurse's Notes [facility] Name: Precious Acosta Age: 31 yrs Sex: Female : 1990 Arrival Date: 04/10/2022 Time: 01:02 Bed 4 Private MD: Diagnosis: Tachycardia, unspecified;Palpitations;Supraventricular tachycardia Presentation: 04/10 01:06 Chief complaint: EMS states: Toned out for palpations, EMS states PTs HR was in the ll3 200's en route, 12 lead EKG showed SV, states administered 12 MG of adenosine and pt converted to sinus tach in the 120's, upon arrival pt is sinus tach with a HR of 114, pt states symptoms have resolved, denies chest pain or SOB, pt reports a family HX of SVT. Coronavirus screen: Vaccine status: Patient reports receiving the 1st dose of the Covid vaccine. At this time, the client does not indicate any symptoms associated with coronavirus-19. Ebola Screen: No symptoms or risks identified at this time. Initial Sepsis Screen: Does the patient meet any 2 criteria? No. Patient's initial sepsis screen is negative. Does the patient have a suspected source of infection? No. Patient's initial sepsis screen is negative. Risk Assessment: Do you want to hurt yourself or someone else? Patient reports no desire to harm self or others. Onset of symptoms was April 10, 2022. Care prior to arrival: Medication(s) given: Adenosine, 12 mg, x 1, Normal saline infusion, 400 ML. 01:06 Method Of Arrival: EMS: [facility] 3 01:06 Acuity: JASEN 2 ll3 STUDIO TECHNICIAN: 01:11 LMP 02/2022 ll3 Historical: - Allergies: 01:11 No Known Allergies; ll3 - Home Meds: 01:11 None [Active]; ll3 - PMHx: 01:11 None; ll3 - PSHx: 01:11 None; ll3 - Immunization history:: Client reports receiving the 1st dose of the Covid vaccine. - Social history:: Smoking status: Patient denies any tobacco usage or history of. Screenin:23 [facility] ED Fall Risk Assessment (Adult) History of falling in the last 3 months, vc1 including since admission No falls in past 3 months (0 pts) Confusion or Disorientation No (0 pts) Intoxicated or Sedated No (0 pts) Impaired Gait No (0 pts) Mobility Assist Device Used No (0 pt) Altered Elimination No (0 pt) Score/Fall Risk Level 0 - 2 = Low Risk Oriented to surroundings, Maintained a safe environment, Educated pt \T\ family on fall prevention, incl call for assistance when getting out of bed, Provided non-skid footwear. Abuse screen: Denies threats or abuse. Denies injuries from another. Nutritional screening: No deficits noted. Tuberculosis screening: No symptoms or risk factors identified. Assessment: 01:30 General: Appears in no apparent distress. comfortable, Behavior is calm, cooperative, jb4 appropriate for age. Pain: Denies pain. Neuro: Level of Consciousness is awake, alert, obeys commands, Oriented to person, place, time, situation. Cardiovascular: Patient's skin is warm and dry. Respiratory: Airway is patent Respiratory effort is even, unlabored, Respiratory pattern is regular, symmetrical. GI: No signs and/or symptoms were reported involving the gastrointestinal system. : No signs and/or symptoms were reported regarding the genitourinary system. EENT: No signs and/or symptoms were reported regarding the EENT system. Derm: Skin is intact, Skin is pink, warm \T\ dry. Musculoskeletal: Circulation, motion, and sensation intact. Range of motion: intact in all extremities. 03:19 Reassessment: Patient appears in no apparent distress at this time. Patient and/or jb4 family updated on plan of care and expected duration. Pain level reassessed. Patient is alert, oriented x 3, equal unlabored respirations, skin warm/dry/pink. 04:11 Reassessment: Patient appears in no apparent distress at this time. Patient and/or jb4 family updated on plan of care and expected duration. Pain level reassessed. Patient is alert, oriented x 3, equal unlabored respirations, skin warm/dry/pink. d/c pending completion of IV fluids. 04:29 Reassessment: Patient appears in no apparent distress at this time. Patient and/or jb4 family updated on plan of care and expected duration. Pain level reassessed. Patient is alert, oriented x 3, equal unlabored respirations, skin warm/dry/pink. Vital Signs: 01:06 BP 130 / 98; Pulse 114; Resp 20; Temp 99.9(O); Pulse Ox 98% on R/A; Weight 113.4 kg ll3 (R); Height 5 ft. 6 in. (167.64 cm) (R); 02:24 BP 136 / 72; Pulse 120; Resp 18; Pulse Ox 100% on R/A; jb4 03:33 BP 113 / 73; Pulse 134; Resp 21; Pulse Ox 98% on R/A; jb4 04:00 BP 122 / 67; Pulse 119; Resp 20; Pulse Ox 97% on R/A; jb4 05:25 BP 118 / 79; Pulse 97; Resp 19; Pulse Ox 97% on R/A; vc1 01:06 Body Mass Index 40.35 (113.40 kg, 167.64 cm) ll3 ED Course: 01:02 Patient arrived in ED. ja2 01:04 Matthew Delgado DO is Attending Physician. ms3 01:11 Triage completed. ll3 01:11 Arm band placed on Patient placed in an exam room, on a stretcher, on cost estimating engineer, ll3 on pulse oximetry. EKG completed in triage. Results shown to MD. 01:21 Maintain EMS IV. Dressing intact. Good blood return noted. Site clean \T\ dry. Gauge \T\ ll 3 site: 20 G RAC. 01:23 XRAY Chest (1 view) In Process Unspecified. EDMS 03:19 Colby Huynh, ARMEN is Primary Nurse. jb4 04:04 Jesus Jim MD is Referral Physician. ms3 05:24 Patient has correct armband on for positive identification. Placed in gown. Bed in low vc1 position. Call light in reach. Side rails up X 1. Adult w/ patient. Client placed on continuous cardiac and pulse oximetry monitoring. NIBP monitoring applied. 05:24 No provider procedures requiring assistance completed. IV discontinued, intact, vc1 bleeding controlled, No redness/swelling at site. Pressure dressing applied. Administered Medications: 01:21 Drug: NS 0.9% 1000 ml Route: IV; Rate: 1000 ml; Site: right antecubital; ll3 05:25 Follow up: Response: No adverse reaction; IV Status: Completed infusion; IV Intake: vc1 1000ml 03:19 Drug: Ativan (LORazepam) 0.5 mg Route: IVP; Site: right antecubital; jb4 05:25 Follow up: Response: No adverse reaction; Marked relief of symptoms vc1 03:39 Drug: NS 0.9% 1000 ml Route: IV; Rate: 1 bolus; Site: right antecubital; jb4 05:24 Follow up: Response: No adverse reaction; IV Status: Completed infusion; IV Intake: vc1 1000ml Medication: 05:24 VIS not applicable for this client. vc1 Intake: 05:24 IV: 1000ml; Total: 1000ml. vc1 05:25 IV: 1000ml; Total: 2000ml. vc1 Outcome: 04:05 Discharge ordered by . ms3 05:24 Discharged to home ambulatory, with friend. vc1 05:24 Condition: stable 05:24 Discharge instructions given to patient, friend, Instructed on discharge instructions, follow up and referral plans. Demonstrated understanding of instructions, follow-up care. 05:26 Patient left the ED. vc1 Signatures: Dispatcher [employer] EDMS Colby Huynh RN RN jb4 Matthew Delgado DO DO ms3 Judy Light [place], RN RN ll3 Kimberly Wade RN RN vc1 Corrections: (The following items were deleted from the chart) 01:13 01:06 Chief complaint: EMS states: Toned out for palpations, EMS states PTs HR was in ll3 the 200's en route, states administered 12 MG of adenosine and pt converted to sinus tach in the 120's, upon arrival pt is sinus tach with a HR of 114, pt states symptoms have resolved, denies chest pain or SOB ll3
--- NOTE | 2022-04-10 04:06 | EDPHYS ---
Physician Documentation [facility] Name: Precious Acosta Age: 31 yrs Sex: Female : 1990 Arrival Date: 04/10/2022 Time: 01:02 Bed 4 Private MD: ED Physician Matthew Delgado HPI: 04/10 01:18 This 31 yrs old Female presents to ER via EMS with complaints of Palpitations. ms3 01:18 31-year-old female with no past medical history presents via [facility] for ms3 palpitations that began 20 minutes prior to arrival. EMS notes they were called to her house last week for SVT that self resolved. EMS states on their arrival tonight patient was in SVT with a heart rate of 200. Blood pressure was stable. Vagal maneuvers were attempted without success. EMS administered 12 mg of adenosine with conversion of her heart rate to sinus tachycardia. Patient states palpitations began 20 minutes prior to EMS being called. Patient denies nausea, vomiting, diarrhea.. APPLICATION TESTER: 01:11 LMP 02/2022 ll3 Historical: - Allergies: 01:11 No Known Allergies; ll3 - Home Meds: 01:11 None [Active]; ll3 - PMHx: 01:11 None; ll3 - PSHx: 01:11 None; ll3 - Immunization history:: Client reports receiving the 1st dose of the Covid vaccine. - Social history:: Smoking status: Patient denies any tobacco usage or history of. ROS: 01:18 Constitutional: Negative for fever, and chills. Neck: Negative for injury, pain, and ms3 swelling. 01:18 Cardiovascular: Negative for chest pain, and palpitations. Respiratory: Negative for shortness of breath, cough, wheezing, and pleuritic chest pain, Abdomen/GI: Negative for abdominal pain, nausea, vomiting, diarrhea, and constipation, MS/Extremity: Negative for injury and deformity, Skin: Negative for injury, rash, and discoloration. 01:18 Cardiovascular: Positive for palpitations. Exam: 01:18 Constitutional: This is a well developed, well nourished patient who is awake, alert, ms3 and in no acute distress. Head/Face: Normocephalic, atraumatic. Neck: Trachea midline, no cervical lymphadenopathy. Supple, full range of motion without nuchal rigidity, or vertebral point tenderness. No Meningismus. Chest/axilla: Normal chest wall appearance and motion. Nontender with no deformity. 01:18 Cardiovascular: Rate: tachycardic, Rhythm: regular, Pulses: no pulse deficits are appreciated, Heart sounds: normal, normal S1and S2. 01:18 ECG was reviewed by the Attending Physician. Vital Signs: 01:06 BP 130 / 98; Pulse 114; Resp 20; Temp 99.9(O); Pulse Ox 98% on R/A; Weight 113.4 kg ll3 (R); Height 5 ft. 6 in. (167.64 cm) (R); 02:24 BP 136 / 72; Pulse 120; Resp 18; Pulse Ox 100% on R/A; jb4 03:33 BP 113 / 73; Pulse 134; Resp 21; Pulse Ox 98% on R/A; jb4 04:00 BP 122 / 67; Pulse 119; Resp 20; Pulse Ox 97% on R/A; jb4 05:25 BP 118 / 79; Pulse 97; Resp 19; Pulse Ox 97% on R/A; vc1 01:06 Body Mass Index 40.35 (113.40 kg, 167.64 cm) ll3 MDM: 01:04 Patient medically screened. ms3 01:21 Differential diagnosis: arrythmia, dehydration, Electrolyte disorder. ms3 04:36 Data reviewed: vital signs, nurses notes, lab test result(s), EKG, radiologic studies, ms3 and as a result, I will discharge patient. Consideration of Admission/Observation Escalation of care including admission/observation considered. Discussed observation with patient. Patient HR decreased from arrival. Patient feels elevated HR could be secondary to bottle of wine she drank last night.. I considered the following discharge prescriptions or medication management in the emergency department Medications were administered in the Emergency Department. See MAR. Independent interpretation of the following test(s) in the Emergency Department EKG: See my EKG interpretation above assistant director of security: rate is 112 beats/min, Rhythm is regular, sinus tachycardia, with no ectopy, Interpretation: normal rhythm, tachycardia. Historians other than the Patient: EMS: [facility]. Counseling: I had a detailed discussion with the patient and/or guardian regarding: the historical points, exam findings, and any diagnostic results supporting the discharge/admit diagnosis, lab results, radiology results, the need for outpatient follow up, to return to the emergency department if symptoms worsen or persist or if there are any questions or concerns that arise at home. Response to treatment: the patient's symptoms have mildly improved after treatment, and as a result, I will discharge patient. Special discussion: I discussed with the patient/guardian in detail that at this point there is no indication for admission to the hospital. It is understood, however, that if the symptoms persist or worsen the patient needs to return immediately for re-evaluation. ED course: Discussed labs, chest x-ray, EKG with patient. Patient TSH normal, D-dimer negative. Patient to follow-up with Dr. Jim in 1 to 2 days. Patient understands and agrees with plan. All questions were answered. Return precautions discussed include worsening symptoms, or any other concerns.. 04/10 01:05 Order name: Basic Metabolic Panel; Complete Time: 02:47 ms3 04/10 01:05 Order name: CBC with Diff; Complete Time: 02:47 ms3 04/10 01:05 Order name: XRAY Chest (1 view) 3 04/10 01:53 Order name: TSH; Complete Time: 02:47 ms3 04/10 02:21 Order name: D-Dimer; Complete Time: 02:54 ms3 04/10 01:05 Order name: EKG; Complete Time: 01:06 ms3 04/10 01:05 Order name: Cardiac monitoring; Complete Time: 01:06 ms3 04/10 01:05 Order name: EKG - Nurse/Tech; Complete Time: 01:06 ms3 04/10 01:05 Order name: IV Saline Lock; Complete Time: 01:06 ms3 04/10 01:05 Order name: Labs collected and sent; Complete Time: 01:15 ms3 04/10 01:05 Order name: O2 Per Protocol; Complete Time: :06 ms3 04/10 01:05 Order name: O2 Sat Monitoring; Complete Time: 01:06 ms3 EC:18 Rate is 119 beats/min. Rhythm is regular. QRS [place] is Normal. ND interval is normal. ms3 QRS interval is normal. Clinical impression: Sinus tachycardia. Interpreted by me. Reviewed by me. Administered Medications: 01:21 Drug: NS 0.9% 1000 ml Route: IV; Rate: 1000 ml; Site: right antecubital; ll3 05:25 Follow up: Response: No adverse reaction; IV Status: Completed infusion; IV Intake: vc1 1000ml 03:19 Drug: Ativan (LORazepam) 0.5 mg Route: IVP; Site: right antecubital; jb4 05:25 Follow up: Response: No adverse reaction; Marked relief of symptoms vc1 03:39 Drug: NS 0.9% 1000 ml Route: IV; Rate: 1 bolus; Site: right antecubital; jb4 05:24 Follow up: Response: No adverse reaction; IV Status: Completed infusion; IV Intake: vc1 1000ml Disposition Summary: 04/10/22 04:05 Discharge Ordered Location: Home ms3 Condition: Stable ms3 Diagnosis - Tachycardia, unspecified ms3 - Palpitations ms3 - Supraventricular tachycardia ms3 Followup: ms3 - With: Jesus Jim MD - When: 1 - 2 days - Reason: Recheck today's complaints Discharge Instructions: - Discharge Summary Sheet ms3 - Palpitations ms3 - Supraventricular Tachycardia, Adult, [id number] ms3 Forms: - Medication Reconciliation Form ms3 - Thank You Letter ms3 - Antibiotic Education ms3 - Prescription Opioid Use ms3 Signatures: Dispatcher [employer] EDColby Pedro RN RN jb4 Matthew Delgado DO DO ms3 Mali Cespedes RN RN ll3 Kimberly Wade RN vc1
[2022-04-10 06:03] VITALS: BP 122/67; O2SAT 97
--- NOTE | 2022-04-10 21:43 | RAD REPORT ---
EXAM DESCRIPTION: RAD - Chest Single View - 04/10/2022 1:21 am CLINICAL HISTORY: Palpitation COMPARISON: None. TECHNIQUE: Chest 1 View AP FINDINGS: Trachea midline. Heart size and pulmonary vessels within normal limits. Lungs clear without evidence of consolidation, mass, or significant pulmonary edema. No significant pleural effusion or pneumothorax. Mild symmetric bilateral lower lungs/chest density most likely represents overlying breast/chest wall attenuation artifact. Bones unremarkable. IMPRESSION: Unremarkable chest radiograph. Electronically signed by: Corby Renae MD 04/10/2022 1:34 AM MAIL MESSENGER CONTRACTOR Due to temporary technical issues with the PACS/Fluency reporting system, reports are being signed by the in house radiologists without review as a courtesy to insure prompt reporting. The interpreting radiologist is fully responsible for the content of the report.
--- NOTE | 2022-04-12 17:04 | EKG ---
Test Date: 2022-04-10 Test Time: 01:11:38 Quality Control Systems Manager: ED MEASUREMENT RESULTS: Intervals: Rate: 119 [place]: 162 QRSD: 74 QT: 320 QTc: 450 [place]: P: 51 [place]: 162 QRS: 72 T: 13 INTERPRETIVE STATEMENTS: Sinus tachycardia Cannot rule out Anterior infarct, age undetermined Abnormal ECG Compared to ECG 10/26/2001 12:18:00 Myocardial infarct finding now present Sinus rhythm no longer present Electronically Signed On 04-12-22 16:58:15 ROUTE AIDE by Jesus Jim
== END 2022-04-10 05:26 | disposition home or self-care (01) ==
LOC: ER 01:01
DX: I47.1 Supraventricular tachycardia (principal)
CPT/HCPCS: 96361; 93005; 85025; 80048; 36415; 85379; 84443; 71045; 96374; 99284; J7030 ×2